=== PATIENT | female | born 1980 | race American Indian/Alaskan Native ===

== ENCOUNTER 2018-02-23 15:49 | Emergency (ER) | payer SELFPAY ==
[2018-02-23 16:10] VITALS: BP 120/67
[2018-02-23 16:48] LABS: Bacteria,Urine 2+ /HPF (Negative); Bilirubin,Urine NEG (Negative); Blood,Urine SM (Negative); Color,Urine Yellow (Yellow); Mucus,Urine 2+ /HPF; Protein,Urine <15 mg/dL mg/dL (Negative)
--- NOTE | 2018-02-23 17:36 | Emergency Department Report ---
ED Female HPI - General Chief complaint: Urogenital-Female Stated complaint: ABD PAIN AND VAGINAL ODOR Time Seen by Provider: 02/23/18 17:35 Source: patient Mode of arrival: Ambulatory Limitations: No Limitations - History of Present Illness MD Complaint: vaginal discharge, dysuria, pelvic pain - Related Data Previous Rx's Medication Instructions Recorded Last Taken Type HYDROcodone/APAP 5-325 [[place] 1 each PO Q6HR PRN #14 tablet 08/08/16 Unknown Rx 5-325 mg TAB] Ibuprofen [Motrin 800 MG tab] 800 mg PO Q8HR PRN #20 tablet 08/08/16 Unknown Rx metroNIDAZOLE [Metronidazole] 500 mg PO BID #14 tablet 02/23/18 Unknown Rx Allergies Allergy/AdvReac Type Severity Reaction Status Date / Time No Known Allergies Allergy Verified 08/08/16 19:05 ED Review of Systems ROS: Stated complaint: ABD PAIN AND VAGINAL ODOR Other details as noted in HPI Constitutional: denies: chills, fever Eyes: denies: eye pain, eye discharge, vision change ENT: denies: ear pain, throat pain Respiratory: denies: cough, shortness of breath, wheezing Cardiovascular: denies: chest pain, palpitations Endocrine: no symptoms reported Gastrointestinal: denies: abdominal pain, nausea, diarrhea Genitourinary: as per HPI, discharge. denies: urgency, dysuria Musculoskeletal: denies: back pain, joint swelling, arthralgia Skin: denies: rash, lesions Neurological: denies: headache, weakness, paresthesias Psychiatric: denies: anxiety, depression Hematological/Lymphatic: denies: easy bleeding, easy bruising ED Past Medical Hx - Past Medical History Previous Medical History?: No - Surgical History Hx Appendectomy: Yes Additional Surgical History: hysterectomy - Social History Smoking Status: Never Smoker Substance Use Type: None - Medications Home Medications: Home Medications Medication Instructions Recorded Confirmed Last Taken Type HYDROcodone/APAP 5-325 [[place] 1 each PO Q6HR PRN #14 tablet 08/08/16 Unknown Rx 5-325 mg TAB] Ibuprofen [Motrin 800 MG tab] 800 mg PO Q8HR PRN #20 tablet 08/08/16 Unknown Rx metroNIDAZOLE [Metronidazole] 500 mg PO BID #14 tablet 02/23/18 Unknown Rx ED Physical Exam - General Limitations: No Limitations General appearance: alert, in no apparent distress - Head Head exam: Present: atraumatic, normocephalic - Eye Eye exam: Present: normal appearance, PERRL, EOMI - ENT ENT exam: Present: mucous membranes moist - Neck Neck exam: Present: normal inspection - Respiratory Respiratory exam: Present: normal lung sounds bilaterally. Absent: respiratory distress - Cardiovascular Cardiovascular Exam: Present: regular rate, normal rhythm. Absent: systolic murmur, diastolic murmur, rubs, gallop - GI/Abdominal GI/Abdominal exam: Present: soft, normal bowel sounds - External exam: Present: normal external exam Speculum exam: Present: normal speculum exam, vaginal discharge (white vaginal discharge) Bi-manual exam: Present: normal bi-manual exam - Extremities Exam Extremities exam: Present: normal inspection - Back Exam Back exam: Present: normal inspection - Neurological Exam Neurological exam: Present: alert, oriented X3 - Psychiatric Psychiatric exam: Present: normal affect, normal mood - Skin Skin exam: Present: warm, dry, intact, normal color. Absent: rash ED Course Vital Signs 02/23/18 16:08 Temperature 98.7 F Pulse Rate 86 Respiratory 18 Rate Blood Pressure 120/67 O2 Sat by Pulse 98 Oximetry ED Medical Decision Making - Medical Decision Making A/P: cervicitis, bacterial vaginosis 1- patient empirically treated with azithromycin and ceftriaxone 2- GC cultures sent 3- patient given follow-up with primary care/[facility] 4- course of metronidazole Critical care attestation.: If time is entered above; I have spent that time in minutes in the direct care of this critically ill patient, excluding procedure time. ED Disposition Clinical Impression: Bacterial vaginosis, Pelvic pain Disposition: - TO HOME OR SELFCARE Is pt being admited?: No Does the pt Need Aspirin: No Condition: Stable Instructions: Bacterial Vaginosis (ED) Prescriptions: metroNIDAZOLE [Metronidazole] 500 mg PO BID #14 tablet Referrals: [facility] [Provider Group] - 3-5 Days [facility] [Provider Group] - 3-5 Days Forms: STI Treatment and Prevention Time of Disposition: 19:18
[2018-02-23 18:33] LABS: HCG Qualitative,Urine Negative (Negative)
[2018-02-23] MEDS ORDERED: MOTRIN PO ONE (19:18)
[2018-02-23] MEDS ORDERED: XYLOCAINE 1% MPF 5 mL INFILTRATI ONE (19:18)
[2018-02-23] MEDS ORDERED: ROCEPHIN IM ONE (19:18)
[2018-02-23] MEDS ORDERED: ZITHROMAX PO ONE (19:18)
== END 2018-02-23 20:09 | disposition home or self-care (01) ==
LOC: ED 15:49
DX: N76.0 Acute vaginitis (principal); B96.89 Other specified bacterial agents as the cause of diseases classified elsewhere; R10.2 Pelvic and perineal pain; Z90.710 Acquired absence of both cervix and uterus
CPT/HCPCS: 81001; 81025; 87210; 87591; 96372; 99284; J0696

== ENCOUNTER 2018-10-12 11:49 | Emergency (ER) | payer SELFPAY ==
--- NOTE | 2018-10-12 12:02 | Emergency Department Report ---
Blank Doc - Documentation Documentation: This is a 38-year-old female that presents with lower back pain and urinary sy mptoms. Stated was seen in [facility] and was diagnosed with UTI and placed on macrobid with no relief. Patient also c/o vaginal discharge. Denies any other Exam: CVA tenderness to left side This initial assessment diagnostic orders/clinical plan/treatment(s) is/are subject to change based on patient's health status, clinical progression and re- assessment by fellow clinical providers in the ED. Further treatment and workup at subsequent clinical providers discretion. Patient/guardians urged not to elope from ED s their condition may be serious if not clinically assessed and managed. Initial orders include: 1-Patient sent to [facility] for further evaluation and treatment 2- UA 3- Labs 4- wet prep
[2018-10-12 12:45] LABS: Bilirubin,Urine NEG (Negative); Blood,Urine NEG (Negative); Color,Urine Yellow (Yellow); Mucus,Urine FEW /HPF; Protein,Urine <15 mg/dL mg/dL (Negative); WBC,Urine < 1.0 /HPF (0.0-6.0)
[2018-10-12 13:09] LABS: Basophils # (Auto) 0.1 K/mm3 (0.0-0.1); Eosinophils # (Auto) 0.2 K/mm3 (0.0-0.4); Eosinophils % (Auto) 3.6 % (0.0-4.3); Hematocrit 36.3 % (30.3-42.9); Hemoglobin 12.2 gm/dl (10.1-14.3); Lymphocytes % (Auto) 31.3 % (13.4-35.0); Mean Corpuscular HGB Conc 34 % (30-34); Mean Corpuscular Volume 83 fl (79-97); Monocytes # (Auto) 0.4 K/mm3 (0.0-0.8); Monocytes % (Auto) 6.4 % (0.0-7.3); Platelet Count 343 K/mm3 (140-440); Red Blood Count 4.35 M/mm3 (3.65-5.03); Red Cell Distribution Width 14.2 % (13.2-15.2)
[2018-10-12 13:30] LABS: BUN/Creatinine Ratio 19; Blood Urea Nitrogen 13 mg/dL (7-17); Calcium 9.2 mg/dL (8.4-10.2); Hemolysis Index 16
[2018-10-12] MEDS ORDERED: TORADOL IM ONE (13:44)
--- NOTE | 2018-10-12 14:00 | Emergency Department Report ---
ED Female HPI - General Chief complaint: Back Pain/Injury Stated complaint: BACK PAIN/DISCHARGE Time Seen by Provider: 10/12/18 11:59 Source: patient Mode of arrival: Ambulatory Limitations: No Limitations - History of Present Illness Initial comments: This is a 38-year-old female past CORSETIER history of the hysterectomy 4 years ago who presents to ED complaining of vaginal discharge for the past 4 days. Patient states that for about a week now she was taking Macrobid for UTI. Patient states she is expressing urinary frequency but no pain with urination. Patient also complaints of left-sided lower back pain it's been going on for almost 2 weeks. She denies any injury, trauma or fall. MD Complaint: vaginal discharge -: Gradual Are you Now?: No - Related Data Previous Rx's Medication Instructions Recorded Last Taken Type HYDROcodone/APAP 5-325 [[place] 1 each PO Q6HR PRN #14 tablet 08/08/16 Unknown Rx 5-325 mg TAB] metroNIDAZOLE [Metronidazole] 500 mg PO BID #14 tablet 02/23/18 Unknown Rx Cyclobenzaprine [Flexeril] 10 mg PO QHS PRN #20 tablet 10/12/18 Unknown Rx Ibuprofen [Motrin 800 MG tab] 800 mg PO Q8HR PRN #20 tablet 10/12/18 Unknown Rx Allergies Allergy/AdvReac Type Severity Reaction Status Date / Time No Known Allergies Allergy Verified 08/08/16 19:05 ED Review of Systems ROS: Stated complaint: BACK PAIN/DISCHARGE Other details as noted in HPI Comment: All other systems reviewed and negative ED Past Medical Hx - Surgical History Hx Appendectomy: Yes Additional Surgical History: hysterectomy - Social History Smoking Status: Never Smoker Substance Use Type: Alcohol - Medications Home Medications: Home Medications Medication Instructions Recorded Confirmed Last Taken Type HYDROcodone/APAP 5-325 [[place] 1 each PO Q6HR PRN #14 tablet 08/08/16 Unknown Rx 5-325 mg TAB] metroNIDAZOLE [Metronidazole] 500 mg PO BID #14 tablet 02/23/18 Unknown Rx Cyclobenzaprine [Flexeril] 10 mg PO QHS PRN #20 tablet 10/12/18 Unknown Rx Ibuprofen [Motrin 800 MG tab] 800 mg PO Q8HR PRN #20 tablet 10/12/18 Unknown Rx ED Physical Exam - General Limitations: No Limitations General appearance: alert, in no apparent distress - Head Head exam: Present: atraumatic, normocephalic - Eye Eye exam: Present: normal appearance - ENT ENT exam: Present: mucous membranes moist - Neck Neck exam: Present: normal inspection - Respiratory Respiratory exam: Present: normal lung sounds bilaterally. Absent: respiratory distress - Cardiovascular Cardiovascular Exam: Present: regular rate, normal rhythm. Absent: systolic murmur, diastolic murmur, rubs, gallop - GI/Abdominal GI/Abdominal exam: Present: soft, normal bowel sounds. Absent: distended, tenderness, guarding, rebound - External exam: Present: normal external exam Speculum exam: Present: vaginal discharge, other (no cervix) Bi-manual exam: Present: normal bi-manual exam - Extremities Exam Extremities exam: Present: normal inspection - Back Exam Back exam: Present: normal inspection - Neurological Exam Neurological exam: Present: alert, oriented X3 - Psychiatric Psychiatric exam: Present: normal affect, normal mood - Skin Skin exam: Present: warm, dry, intact, normal color. Absent: rash ED Course Vital Signs 10/12/18 10/12/18 10/12/18 12:01 14:00 16:47 Temperature 98 F Pulse Rate 74 68 Respiratory 18 18 18 Rate Blood Pressure 129/48 Blood Pressure 105/59 [Right] O2 Sat by Pulse 100 99 Oximetry ED Medical Decision Making - Lab Data Result diagrams: 10/12/18 12:46 10/12/18 12:46 Critical care attestation.: If time is entered above; I have spent that time in minutes in the direct care of this critically ill patient, excluding procedure time. ED Disposition Clinical Impression: Urinary frequency, Low back pain, Myalgia Disposition: - TO HOME OR SELFCARE Is pt being admited?: No Does the pt Need Aspirin: No Condition: Stable Instructions: Acute Low Back Pain (ED), Dysuria (ED), Musculoskeletal Pain (ED) Additional Instructions: Make sure to follow up with the primary care physician as discussed. Take all your medications as you've been prescribed. If you have any worsening symptoms or develop new symptoms please return to ED immediately. Prescriptions: Cyclobenzaprine [Flexeril] 10 mg PO QHS PRN #20 tablet PRN Reason: Muscle Spasm Ibuprofen [Motrin 800 MG tab] 800 mg PO Q8HR PRN #20 tablet PRN Reason: Pain Referrals: TORY MORRIS MD [Primary Care Provider] - 3-5 Days Forms: Work/School Release Form Time of Disposition: 15:58
[2018-10-12 16:49] VITALS: BP 105/59
== END 2018-10-12 16:49 | disposition home or self-care (01) ==
LOC: ED 11:49
DX: R35.0 Frequency of micturition (principal); M54.5 Low back pain; N89.8 Other specified noninflammatory disorders of vagina
CPT/HCPCS: 36415; 80048; 81001; 85025; 87210; 87591; 96372; 99284; J1885

== ENCOUNTER 2019-06-30 10:09 | Emergency (ER) | payer SELFPAY ==
[2019-06-30 10:35] VITALS: BP 113/50
[2019-06-30 11:00] LABS: Bilirubin,Urine NEG (Negative); Blood,Urine SM (Negative); Color,Urine Yellow (Yellow); Mucus,Urine FEW /HPF; Protein,Urine <15 mg/dL mg/dL (Negative); Urobilinogen,Urine < 2.0 mg/dL (<2.0); WBC,Urine < 1.0 /HPF (0.0-6.0)
[2019-06-30 11:35] LABS: HCG Qualitative,Urine Negative (Negative)
[2019-06-30] MEDS ORDERED: LIDOCAINE-MPF (1%) 10 MG/1 ML VIAL 5 ML INFILTRATI ONE (12:22)
[2019-06-30] MEDS ORDERED: AZITHROMYCIN 250 MG TAB PO ONE (12:22)
--- NOTE | 2019-06-30 12:22 | Emergency Department Report ---
ED Female HPI - General Chief complaint: Urogenital-Female Stated complaint: PAIN/DISCHARGE/FREQUENT URINATION Time Seen by Provider: 06/30/19 11:18 Source: patient Mode of arrival: Ambulatory Limitations: No Limitations - History of Present Illness Initial comments: This is a 38-year-old female nontoxic, well nourished in appearance, no acute signs of distress presents to the ED with c/o of vaginal discharge, pelvic pain, and dysuria x2 weeks. Patient denies any vaginal pain or swelling. Patient denies any vaginal ulcers or lesions. Deneis any radiation of pain. Stated has cramping 3/10. Patient denies any nausea, vomiting, chest pain, shortness of breathe, fever, chills, headache, back pain, numbness, tingling, stiff neck. Patient denies any other urinary symptoms. Patient denies any allergies or PMH. MD Complaint: vaginal discharge, dysuria, pelvic pain, possible STD -: week(s) (2) Radiation: non-radiating Severity: mild Severity scale (0 -10): 3 Quality: cramping Consistency: constant Improves with: none Worsens with: none Associated Symptoms: vaginal discharge, dysuria. denies: vaginal bleeding, abdominal pain, nausea/vomiting, fever/chills, headaches, loss of appetite, hematuria, rash, seizure, shortness of breath, syncope, weakness - Related Data Sexually active: Yes Previous Rx's Medication Instructions Recorded Last Taken Type HYDROcodone/APAP 5-325 [[place] 1 each PO Q6HR PRN #14 tablet 08/08/16 Unknown Rx 5-325 mg TAB] metroNIDAZOLE [Metronidazole] 500 mg PO BID #14 tablet 02/23/18 Unknown Rx Cyclobenzaprine [Flexeril] 10 mg PO QHS PRN #20 tablet 10/12/18 Unknown Rx Ibuprofen [Motrin 800 MG tab] 800 mg PO Q8HR PRN #20 tablet 10/12/18 Unknown Rx Fluconazole [Diflucan TAB] 150 mg PO ONCE #1 tablet 06/30/19 Unknown Rx Allergies Allergy/AdvReac Type Severity Reaction Status Date / Time No Known Allergies Allergy Verified 08/08/16 19:05 ED Review of Systems ROS: Stated complaint: PAIN/DISCHARGE/FREQUENT URINATION Other details as noted in HPI Constitutional: denies: chills, fever Eyes: denies: eye pain, eye discharge, vision change ENT: denies: ear pain, throat pain Respiratory: denies: cough, shortness of breath, wheezing Cardiovascular: denies: chest pain, palpitations Endocrine: no symptoms reported Gastrointestinal: denies: abdominal pain, nausea, diarrhea Genitourinary: dysuria, discharge. denies: urgency, frequency, hematuria, abnormal menses, dyspareunia Musculoskeletal: denies: back pain, joint swelling, arthralgia Skin: denies: rash, lesions Neurological: denies: headache, weakness, paresthesias Psychiatric: denies: anxiety, depression Hematological/Lymphatic: denies: easy bleeding, easy bruising ED Past Medical Hx - Past Medical History Previous Medical History?: No - Surgical History Past Surgical History?: Yes Hx Appendectomy: Yes Additional Surgical History: hysterectomy - Social History Smoking Status: Never Smoker - Medications Home Medications: Home Medications Medication Instructions Recorded Confirmed Last Taken Type HYDROcodone/APAP 5-325 [[place] 1 each PO Q6HR PRN #14 tablet 08/08/16 Unknown Rx 5-325 mg TAB] metroNIDAZOLE [Metronidazole] 500 mg PO BID #14 tablet 02/23/18 Unknown Rx Cyclobenzaprine [Flexeril] 10 mg PO QHS PRN #20 tablet 10/12/18 Unknown Rx Ibuprofen [Motrin 800 MG tab] 800 mg PO Q8HR PRN #20 tablet 10/12/18 Unknown Rx Fluconazole [Diflucan TAB] 150 mg PO ONCE #1 tablet 06/30/19 Unknown Rx ED Physical Exam - General Limitations: No Limitations General appearance: alert, in no apparent distress - Head Head exam: Present: atraumatic, normocephalic - Neck Neck exam: Present: normal inspection, full ROM. Absent: tenderness, meningismus, lymphadenopathy - GI/Abdominal GI/Abdominal exam: Present: soft, normal bowel sounds. Absent: distended, tenderness, guarding, rebound, rigid, diminished bowel sounds - External exam: Present: normal external exam, other (hair machine operator Luz Maria tech present during exam). Absent: erythema, swelling, lesions, lacerations, ecchymosis, bleeding Speculum exam: Present: cervical discharge, other (hair machine operator Luz Maria tech present during exam). Absent: erythema, vaginal discharge, vaginal bleeding, foreign body, tissue, laceration Bi-manual exam: Present: normal bi-manual exam, other (hair machine operator Luz Maria tech pres ent during exam). Absent: cervical motion tendernes, adnexal tenderness, adnexal mass, uterine enlargement, uterine tenderness - Extremities Exam Extremities exam: Present: normal inspection, full ROM - Back Exam Back exam: Present: normal inspection, full ROM. Absent: tenderness, CVA tenderness (R), CVA tenderness (L), muscle spasm, paraspinal tenderness, vertebral tenderness, rash noted - Neurological Exam Neurological exam: Present: alert, oriented X3, normal gait - Psychiatric Psychiatric exam: Present: normal affect, normal mood - Skin Skin exam: Present: warm, dry, intact, normal color. Absent: rash ED Course Vital Signs 06/30/19 06/30/19 10:33 12:33 Temperature 98.5 F Pulse Rate 78 Respiratory 17 14 Rate Blood Pressure 113/50 O2 Sat by Pulse 100 Oximetry - Reevaluation(s) Reevaluation #1: 06/30/19 12:21 Patient is speaking in full sentences with no signs of distress noted. ED Medical Decision Making - Medical Decision Making This is a 38-year-old female that presents with possible STD and PID. Patient is stable was examined by me. There is no abdominal tenderness. No pelvic pain. UA obtained. Wet prep obtained. Gonorrhea chlamydia swab pending. Patient stated due to azithromycin that she received last time she receives vaginal yeast infection and is requesting for Diflucan at discharge. Patient was instructed to return in 3-5 days for GC results. Patient received 250 mg Rocephin and 1 g of azithromycin by mouth. Patient was instructed to Follow-up with a primary care doctor in 3-5 days or if symptoms worsen and continue return to emergency room as soon as possible. At time of discharge, the patient does not seem toxic or ill in appearance. No acute signs of distress noted. Patient agrees to discharge treatment plan of care. No further questions noted by the patient. Critical care attestation.: If time is entered above; I have spent that time in minutes in the direct care of this critically ill patient, excluding procedure time. ED Disposition Clinical Impression: Possible exposure to STD, PID (acute pelvic inflammatory disease) Disposition: TO HOME OR SELFCARE Is pt being admited?: No Does the pt Need Aspirin: No Condition: Stable Instructions: Pelvic Inflammatory Disease (ED), Safe Sex (ED) Additional Instructions: Follow-up with a primary care and OBGYN doctor in 3-5 days or if symptoms worsen and continue return to emergency room as soon as possible. Prescriptions: Fluconazole [Diflucan TAB] 150 mg PO ONCE #1 tablet Referrals: PRIMARY CAREMD [Primary Care Provider] - 3-5 Days LUCI ELDRIDGE MD [Staff Physician] - 3-5 Days CATALINA MCGOVERN MD [Staff Physician] - 3-5 Days [facility] [Provider Group] - 3-5 Days Forms: Work/School Release Form(ED)
[2019-06-30] MEDS ORDERED: IBUPROFEN 800 MG TAB PO ONE (12:39)
[2019-06-30] MEDS ORDERED: IBUPROFEN 800 MG TAB ONE (12:40)
== END 2019-06-30 12:58 | disposition home or self-care (01) ==
LOC: ED 10:09
DX: N73.9 Female pelvic inflammatory disease, unspecified (principal); Z90.49 Acquired absence of other specified parts of digestive tract; Z90.710 Acquired absence of both cervix and uterus; Z79.899 Other long term (current) drug therapy
CPT/HCPCS: 81001; 81025; 87086; 87210; 87591; 96372; 99284; J0696

== ENCOUNTER 2021-04-27 07:31 | Day surgery (SDC) | payer OTHER ==
[~2021-04-27 07:31] MED LIST: SODIUM CHLORIDE 0.9% 1000 ML 1,000 ML IV SCH
[2021-04-27] MEDS ORDERED: WATER FOR IRRIG STERILE 250 ML BOTTLE IR ONE (08:21)
[2021-04-27] MEDS ORDERED: propofoL 200 MG/20 ML VIAL IV ONE ×3 (08:32→09:01)
--- NOTE | 2021-04-27 08:40 | Anesthesia Consultation ---
Anesthesia Consult and Med Hx Date of service: 04/27/21 - Airway Anesthetic Teeth Evaluation: Good ROM Head & Neck: Adequate Mental/Hyoid Distance: Adequate Mallampati Class: Class II Intubation Access Assessment: Good - Pulmonary Exam CTA: Yes - Cardiac Exam Cardiac Exam: No Murmur - Pre-Operative Health Status ASA Pre-Surgery Classification: ASA1 Proposed Anesthetic Plan: MAC - Gastrointestinal Hx Ulcer: Yes
--- NOTE | 2021-04-27 08:40 | Anesthesia Day of Surgery ---
Anesthesia Day of Surgery - Day of Surgery Patient Examined: Yes Patient H&P Reviewed: Yes Patient is NPO: Yes
[2021-04-27] MEDS ORDERED: LIDOCAINE MPF (2%) 20 MG/1 ML VIAL 5 ML ONE (09:01)
--- NOTE | 2021-04-27 09:30 | Procedure Note ---
Date of procedure: 04/27/21 Pre-op diagnosis: Abdominal Pain/ P/H/O Peptic Ulcer Disease/ GI Bleeding Post-op diagnosis: other (No Peptic Ulcer Disease noted/ Mild to Moderate Erosive Esophagitis/ Gastritis/ R/O Celiac Disease/ R/O Microscopic Colitis/ R/O Ileitis/ Mild to Moderate Internal Hemorrhoids (possible cause of the patient's GI Bleeding)/ No colon Polyps or diverticular Disease noted) Procedure: EGD with Biopsy and Colonoscopy with Biopsy Anesthesia: [facility] [place] Surgeon: CHICHO BUSTAMANTE Estimated blood loss: minimal Pathology: list Specimen disposition: to lab Condition: stable Disposition: same day (Treat with PPI, prn Bentyl for abdominal pain and OTC Probiotic (use as directed); avoid aspirin and NSAID for 5 days otherwise resume previous medication and F/U in 1 to 2 weeks ([phone]).)
--- NOTE | 2021-04-27 09:40 | Post Anesthesia Evaluation ---
- Post Anesthesia Evaluation Patient Participated: Yes Airway Patent: Yes Stable Respiratory Function: Yes Nausea/Vomiting: No Temp > 96.8F: Yes Pain Manageable: Yes Adequeate Hydration: Yes Anesthesia Complications: No
--- NOTE | 2021-04-27 10:20 | Operative Report ---
DATE OF SURGERY: 04/27/2021 INDICATIONS: A 40-year-old -[place] female with status post partial hysterectomy in 2013 and appendectomy in 1999, who gives a prior history of peptic ulcer disease. She has been complaining of abdominal pain and GI bleeding. EGD did not show any evidence of any peptic ulcer disease, but did show mild to moderate erosive esophagitis and gastritis. Biopsy was also done to rule out for celiac disease. DESCRIPTION OF PROCEDURE: Colonoscopy was done to make sure there was ____ any significant lower GI pathology present. Initial rectal examination was unremarkable. The instrument was passed through the rectum onto the cecum, which was identified with ileocecal valve and appendiceal orifice. Visualization was fair to good. Terminal ileum was intubated, showed normal mucosa. Biopsy was done to rule out for possible ileitis. Cecum, ascending colon, transverse colon, descending colon and sigmoid likewise showed normal mucosa. There was no endoscopic evidence of colitis, diverticular disease of colon polyps. Random biopsies were done to rule out for possible microscopic colitis and the rectum showed some mild to moderate internal hemorrhoid, which may have been the cause of the patient's bleeding. ASSESSMENT: Abdominal pain, GI bleeding secondary to mild to moderate internal hemorrhoids, rule out microscopic colitis, rule out ileitis. No colon polyps or diverticular disease noted. PLAN: To have the patient avoid aspirin and aspirin-related products for the next few days. Treat the patient with Bentyl on a p.r.n. basis for abdominal pain. Also, encouraged the patient to take [id number] probiotics as needed. Treat the patient with proton pump inhibitor because of the findings of esophagitis, gastritis, and have the patient follow up in the office in 1-2 weeks' time. Procedure was done in the GI lab with assistance of the GI lab team included the GI nurse, mammography technologist, and with assistance of anesthesia. The patient will also be asked to take some [id number] hemorrhoidal medication for her mild to moderate internal hemorrhoids, which have been the cause of her bleeding from time to time. TID: [id number] RECEIPT: [id number] MELIA/GRACE/SHIRLEY cc: Dr. Red
--- NOTE | 2021-04-27 10:20 | Operative Report ---
DATE OF SURGERY: 04/27/2021 PROCEDURE: EGD with biopsy. INDICATIONS: This is a 40-year-old -[place] female who has had partial hysterectomy in 2013 and appendectomy in 1999, has been having some abdominal pain and she gives a prior history of peptic ulcer disease. Pain is mainly in the epigastric area and also in the lower abdomen. EGD was done to make sure there was not any recurrence of any peptic ulcer disease. She also on occasion gives history of GI bleeding. DESCRIPTION OF PROCEDURE: Procedure was done after getting informed consent with MAC anesthesia. The instrument was passed through the hypopharynx into the esophagus, which showed some mild to moderate erosive esophagitis. Photodocumentation and biopsy was done to assess for the severity of the erosive esophagitis. Stomach showed some antral gastritis. The pylorus is patent. The duodenum in the first and second portion appeared normal. There was no evidence of any gastric or duodenal ulcer noted. Biopsy was done from the second part of the duodenum to rule out for possible celiac disease. Additional biopsy was done from the gastric antrum, gastric body and angular incisura to rule out for H. pylori and atrophic gastritis. ASSESSMENT: Abdominal pain, past history of peptic ulcer disease, none now; [id number] erosive esophagitis; gastritis, rule out celiac disease. PLAN: To treat the patient with PPI. Treat the patient also with p.r.n. dose of Bentyl because of abdominal pain and to do a colonoscopy for further assessment of the patient's symptoms. Procedure was done in the GI lab with assistance of the GI lab team, which included the GI nurse, pharmacy technician infusion and with assistance of anesthesia. TID: [id number] RECEIPT: [id number] MELIA/SURINDER cc: Dr. Red
[2021-04-27 11:30] VITALS: BP 102/64
== END 2021-04-27 10:20 | disposition home or self-care (01) ==
LOC: GIO 07:31
DX: R10.9 Unspecified abdominal pain (principal); K29.50 Unspecified chronic gastritis without bleeding; K21.00 Gastro-esophageal reflux disease with esophagitis, without bleeding; K57.30 Diverticulosis of large intestine without perforation or abscess without bleeding; K64.0 First degree hemorrhoids; K63.89 Other specified diseases of intestine; K31.89 Other diseases of stomach and duodenum; B96.81 Helicobacter pylori [H. pylori] as the cause of diseases classified elsewhere; Z90.710 Acquired absence of both cervix and uterus; Z98.890 Other specified postprocedural states; Z79.899 Other long term (current) drug therapy
CPT/HCPCS: 43239; 45380; 81025; 88305; 88342; J2704